=== PATIENT | female | born 1970 | race African-American/Black ===

== ENCOUNTER 2018-01-27 19:15 | Emergency (ER) | payer MEDICARE, MEDICAID ==
[2018-01-27] MEDS ORDERED: METHYLPREDNISOLONE INJ 125 MG/2 ML SDV IV ONE (19:43)
[2018-01-27] MEDS ORDERED: IPRATROPIUM/ALBUTEROL 0.5-2.5 MG/3 ML AMPUL NEB ONE (19:43)
[2018-01-27 20:07] LABS: ABSOLUTE BASOPHILS # (AUTO) 0.1 10^3/uL (0.0-0.2); ABSOLUTE EOSINOPHILS # (AUTO) 0.2 10^3/uL (0.0-0.6); ABSOLUTE LYMPHOCYTES (AUTO) 1.1 10^3/uL (0.5-4.7); ABSOLUTE MONOCYTES (AUTO) 0.5 10^3/uL (0.1-1.4); ABSOLUTE NEUT (AUTO) 8.4 10^3/uL (1.7-8.2); BASOPHILS % (AUTO) 0.7 % (0-2); EOSINOPHILS % (AUTO) 1.7 % (0-6); HEMOGLOBIN 12.2 g/dL (12.0-15.5); LYMPHOCYTES % (AUTO) 10.3 % (13-45); MEAN CORPUSCULAR HEMOGLOBIN 27.6 pg (27.0-33.4); MEAN CORPUSCULAR VOLUME 86 fl (80-97); MONOCYTES % (AUTO) 4.8 % (3-13); PLATELET COUNT 226 10^3/uL (150-450); RED BLOOD COUNT 4.41 10^6/uL (3.72-5.28); SEGMENTED NEUTROPHILS % (AUTO) 82.5 % (42-78); TOTAL CELLS COUNTED % (AUTO) 100 %; WHITE BLOOD COUNT 10.2 10^3/uL (4.0-10.5)
[2018-01-27 20:10] LABS: VENOUS BLOOD BASE EXCESS 3.4 mmol/L; VENOUS BLOOD HCO3 30.5 mmol/L (20-32); VENOUS BLOOD PCO2 57.1 mmHg (35-63); VENOUS BLOOD PH 7.35 (7.30-7.42)
--- NOTE | 2018-01-27 20:21 | RADIOLOGY REPORT (SQ) ---
EXAM DESCRIPTION: CHEST 2 VIEWS COMPLETED DATE/TIME: 01/27/2018 8:14 pm REASON FOR STUDY: sob COMPARISON: None. EXAM PARAMETERS: NUMBER OF VIEWS: two views TECHNIQUE: Digital Frontal and Lateral radiographic views of the chest acquired. RADIATION DOSE: NA LIMITATIONS: none FINDINGS: LUNGS AND PLEURA: No opacities, masses or pneumothorax. No pleural effusion. MEDIASTINUM AND HILAR STRUCTURES: No masses or contour abnormalities. HEART AND VASCULAR STRUCTURES: Heart normal size. No evidence for failure. BONES: No acute findings. HARDWARE: None in the chest. OTHER: No other significant finding. IMPRESSION: NO ACUTE RADIOGRAPHIC FINDING IN THE CHEST. TECHNICAL DOCUMENTATION: JOB ID: [id number] [employer]- All Rights Reserved Reading location - IP/workstation name: [email or web address]
[2018-01-27 20:35] LABS: ALANINE AMINOTRANSFERASE 19 U/L (9-52); ALBUMIN 4.1 g/dL (3.5-5.0); ALKALINE PHOSPHATASE 125 U/L (38-126); ANION GAP 10 (5-19); ASPARTATE AMINO TRANSFERASE 17 U/L (14-36); BILIRUBIN,DIRECT 0.3 mg/dL (0.0-0.4); BILIRUBIN,TOTAL 0.4 mg/dL (0.2-1.3); BLOOD UREA NITROGEN 10 mg/dL (7-20); CALCIUM 9.4 mg/dL (8.4-10.2); CARBON DIOXIDE 34 mmol/L (22-30); CHLORIDE 99 mmol/L (98-107); CREATINE KINASE 56 U/L (30-135); GLUCOSE 112 mg/dL (75-110); POTASSIUM 3.4 mmol/L (3.6-5.0); SODIUM 142.7 mmol/L (137-145); TOTAL PROTEIN 7.4 g/dL (6.3-8.2)
[2018-01-27 20:45] LABS: CREATINE KINASE MB 1.02 ng/mL (<4.55); TROPONIN I < 0.012 ng/mL
[2018-01-27] MEDS ORDERED: AZITHROMYCIN INJ 500 MG VIAL IV ONE (21:15)
[2018-01-27] MEDS ORDERED: BUDESONIDE/FORMOTEROL 160-4.5 MCG 60 PUFF/6 GM MDI IH ONE (22:49)
--- NOTE | 2018-01-27 22:53 | ER Document Report ---
ED Respiratory Problem - General Chief Complaint: Shortness Of Breath Stated Complaint: BREATHING DIFFICULTY Time Seen by Provider: 01/27/18 19:37 Mode of Arrival: Medic Information source: Patient Notes: Patient is a 47-year-old female with COPD who presents to the ER via EMS today for shortness of breath that began this morning. Patient admits to wheezing and coughing over the past couple of days. Patient is not on oxygen at home and states that she does not have inhalers to take at home because "they have not given them to me." She denies any fevers or chills that she knows of. She denies chest pain. TRAVEL OUTSIDE OF THE [place] IN LAST 30 DAYS: No Past Medical History - General Information source: Patient - Social History Smoking Status: Former Smoker Chew tobacco use (# tins/day): No Frequency of alcohol use: None Drug Abuse: None Family History: Reviewed & Not Pertinent Patient has suicidal ideation: No Patient has homicidal ideation: No - Past Medical History Cardiac Medical History: Reports: Hx Hypertension Pulmonary Medical History: Reports: Hx Asthma, Hx COPD Renal/ Medical History: Denies: Hx Peritoneal Dialysis Past Surgical History: Reports: Hx Section, Hx Tubal Ligation Review of Systems - Review of Systems Constitutional: No symptoms reported EENT: No symptoms reported Cardiovascular: No symptoms reported Respiratory: See HPI Gastrointestinal: No symptoms reported Genitourinary: No symptoms reported Female Genitourinary: No symptoms reported Musculoskeletal: No symptoms reported Skin: No symptoms reported Hematologic/Lymphatic: No symptoms reported Neurological/Psychological: No symptoms reported Physical Exam - Vital signs Vitals: Resp Pulse Ox 28 H 98 01/27/18 19:35 01/27/18 19:35 - Notes Notes: PHYSICAL EXAMINATION: GENERAL: Mildly ill-appearing, but in no acute distress. HEAD: Atraumatic, normocephalic. EYES: Pupils equal round and reactive to light, extraocular movements intact, sclera anicteric, conjunctiva are normal. ENT: ear canals without erythema or foreign body, TMs pearly bush with good bony landmarks, nares patent, oropharynx clear without exudates. Moist mucous membranes. Airway patent NECK: Normal range of motion, supple without lymphadenopathy LUNGS: Moderate expiratory wheezes throughout, no rales or rhonchi. HEART: Regular rate and rhythm without murmurs ABDOMEN: Soft, no tenderness. No guarding, no rebound BACK: no vertebral tenderness, normal ROM GI/: no CVA tenderness EXTREMITIES: Normal range of motion, no pitting edema. No cyanosis. NEUROLOGICAL: Cranial nerves grossly intact. Normal sensory/motor exams. PSYCH: Normal mood, normal affect. SKIN: Warm, Dry, normal turgor, no rashes or lesions noted Course - Re-evaluation Re-evalutation: 01/28/18 00:11 Labs are unremarkable today, chest x-ray reveals no acute pathology, venous blood gases all within normal limits, off of oxygen patient oxygen saturation does go down to 91%, but usually stays between 93 and 95% on room air. Hospitalist did come down to evaluate patient, stating that she is stable for discharge and wanted me to send her home with Symbicort. She will go home with that from the emergency department. Patient feeling much better after breathing treatments here. I will send her home on azithromycin and prednisone. - Vital Signs Vital signs: Temp Pulse Resp BP Pulse Ox 26 H 98 01/27/18 21:00 01/27/18 21:00 - Laboratory Result Diagrams: 01/27/18 19:45 01/27/18 19:45 Laboratory results interpreted by me: 01/27/18 01/27/18 19:45 19:45 RDW 16.0 H Seg Neutrophils % 82.5 H Lymphocytes % 10.3 L Absolute Neutrophils 8.4 H Potassium 3.4 L Carbon Dioxide 34 H Glucose 112 H Discharge - Discharge Clinical Impression: COPD exacerbation Condition: Stable Disposition: HOME, SELF-CARE Additional Instructions: Return immediately for any new or worsening symptoms. Follow up with primary care provider, call tomorrow to make followup appointment. Prescriptions: Azithromycin [Zithromax 250 mg Tablet] 250 mg PO ASDIR PRN #6 tablet PRN Reason: Prednisone 60 mg PO DAILY #15 tablet
[2018-01-28] MEDS ORDERED: BUDESONIDE/FORMOTEROL 160-4.5 MCG 60 PUFF/6 GM MDI IH ONE (00:26)
[2018-01-28 00:40] VITALS: BP 178/99
--- NOTE | 2018-01-28 20:16 | EKG REPORT ---
SEVERITY:- NORMAL ECG - SINUS RHYTHM : Confirmed by: Tiffany Bobo 28-Jan-2018 20:16:11
== END 2018-01-28 00:40 | disposition home or self-care (01) ==
LOC: ER 19:15
DX: J44.1 Chronic obstructive pulmonary disease with (acute) exacerbation (principal); R06.02 Shortness of breath; R05 Cough; Z87.891 Personal history of nicotine dependence; I10 Essential (primary) hypertension
CPT/HCPCS: 93005; 94640; 99285; 96375; 96365; 36415; 82553; 82550; 85025; 80053; 84484; 82803; 71046; 93010; J2930; J0456; A9270; J3490; J7620

== ENCOUNTER 2018-04-03 21:23 | Emergency (ER) | payer MEDICAID, MEDICARE ==
[2018-04-03] MEDS ORDERED: ACETAMINOPHEN 325 MG TABLET PO ONE (23:25)
--- NOTE | 2018-04-03 23:26 | ER Document Report ---
ED Medical Screen (RME) - General Chief Complaint: Headache Stated Complaint: HEADACHE Time Seen by Provider: 04/03/18 23:22 TRAVEL OUTSIDE OF THE [place] IN LAST 30 DAYS: No - HPI Notes: 04/03/18 23:23 Patient is a 47-year-old female with a history of anxiety and depression presents to the ED complaining of a frontal headache intermittently 1 week, but worsened with increased stress when she was kicked out of her house today. Patient states that she had nowhere else to go so she called ambulance and was brought here. Patient states the headache does not radiate. Patient states that she has a history of headaches and this is nothing different. She is eating and drinking without any difficulties. She is urinating normally and having normal bowel movements. Denies any drug allergies. Denies any visual or auditory hallucinations. Denies any SI/HI. No other concerns or complaints at this time. Patient is asking to speak with somebody for "places to go." Denies any fever, head injury, neck pain, changes in vision/speech/mentation/ hearing, URI, sore throat, chest pain, palpitations, syncope, cough, shortness of breath, wheeze, dyspnea, abdominal pain, nausea/vomiting/diarrhea, urinary retention, dysuria, hematuria, loss of control of bowel or bladder, numbness/ tingling, muscle paralysis/weakness, or rash. I have treated and performed a rapid initial assessment of this patient. A comprehensive ED assessment and evaluation of the patient, analysis of test results and completion of medical decision making process will be conducted by additional ED providers. PHYSICAL EXAMINATION: GENERAL: Well-appearing, well-nourished and in no acute distress. A&Ox4. Answers questions appropriately. Eyes: PERRLA, EOMI b/l. No nystagmus. Vis ty intact. LUNGS: Breath sounds clear to auscultation bilaterally and equal. No wheezes rales or rhonchi. HEART: Regular rate and rhythm without murmurs, rubs, gallops. Extremities: No cyanosis, clubbing, or edema b/l. MS: no focal weakness. NEUROLOGICAL: Normal speech, normal gait. Cranial nerves grossly intact. NIH 0 , GCS 15. PSYCH: Normal mood, normal affect. Past Medical History - Past Medical History Cardiac Medical History: Reports: Hx Hypertension Pulmonary Medical History: Reports: Hx Asthma, Hx COPD Renal/ Medical History: Denies: Hx Peritoneal Dialysis Past Surgical History: Reports: Hx Section, Hx Tubal Ligation Physical Exam - Vital signs Vitals: Temp Pulse Resp BP Pulse Ox 98.5 F 61 18 143/61 H 98 04/03/18 21:59 04/03/18 21:59 04/03/18 21:59 04/03/18 21:59 04/03/18 21:59 Course - Vital Signs Vital signs: Temp Pulse Resp BP Pulse Ox 98.5 F 61 18 143/61 H 98 04/03/18 21:59 04/03/18 21:59 04/03/18 21:59 04/03/18 21:59 04/03/18 21:59
--- NOTE | 2018-04-04 03:06 | ER Document Report ---
ED General - General Chief Complaint: Headache Stated Complaint: HEADACHE Time Seen by Provider: 04/03/18 23:22 Notes: Patient is a 47-year-old female with a history of anxiety and depression presents to the ED complaining of a frontal headache intermittently 1 week, but worsened with increased stress when she was kicked out of her house today. Patient states that she had nowhere else to go so she called ambulance and was brought here. Patient states the headache does not radiate. Patient states that she has a history of headaches and this is nothing different. Nothing improves or worsens his headache. She is eating and drinking without any difficulties. She is urinating normally and having normal bowel movements. Denies any drug allergies. Denies any visual or auditory hallucinations. Denies any SI/HI. No other concerns or complaints at this time. Patient is asking to speak with somebody for "places to go." Denies any fever, head injury , neck pain, changes in vision/speech/mentation/hearing, URI, sore throat, chest pain, palpitations, syncope, cough, shortness of breath, wheeze, dyspnea, abdominal pain, nausea/vomiting/diarrhea, urinary retention, dysuria, hematuria , loss of control of bowel or bladder, numbness/tingling, muscle paralysis/ weakness, or rash. TRAVEL OUTSIDE OF THE [place] IN LAST 30 DAYS: No Past Medical History - General Information source: Patient - Social History Smoking Status: Never Smoker Frequency of alcohol use: None Drug Abuse: None Lives with: Homeless Family History: Reviewed & Not Pertinent - Past Medical History Cardiac Medical History: Reports: Hx Hypertension Pulmonary Medical History: Reports: Hx Asthma, Hx COPD Renal/ Medical History: Denies: Hx Peritoneal Dialysis Past Surgical History: Reports: Hx Section, Hx Tubal Ligation Review of Systems - Review of Systems Notes: Constitutional: Negative for fever. HENT: Negative for sore throat. Eyes: Negative for visual changes. Cardiovascular: Negative for chest pain. Respiratory: Negative for shortness of breath. Gastrointestinal: Negative for abdominal pain, vomiting or diarrhea. Genitourinary: Negative for dysuria. Musculoskeletal: Negative for back pain. Skin: Negative for rash. Neurological: Positive for headache 10 point ROS negative except as marked above and in HPI. Physical Exam - Vital signs Vitals: Temp Pulse Resp BP Pulse Ox 98.5 F 61 18 143/61 H 98 04/03/18 21:59 04/03/18 21:59 04/03/18 21:59 04/03/18 21:59 04/03/18 21:59 Interpretation: Hypertensive Notes: PHYSICAL EXAMINATION: GENERAL: Well-appearing, well-nourished and in no acute distress. HEAD: Atraumatic, normocephalic. EYES: Pupils equal round and reactive to light, extraocular movements intact, sclera anicteric, conjunctiva are normal. ENT: nares patent, oropharynx clear without exudates. Moist mucous membranes. NECK: Normal range of motion, supple without lymphadenopathy LUNGS: Breath sounds clear to auscultation bilaterally and equal. No wheezes rales or rhonchi. HEART: Regular rate and rhythm without murmurs ABDOMEN: Soft, nontender, normoactive bowel sounds. No guarding, no rebound. No masses appreciated. EXTREMITIES: Normal range of motion, no pitting or edema. No cyanosis. NEUROLOGICAL: No focal neurological deficits. Moves all extremities spontaneously and on command. PSYCH: Normal mood, normal affect. SKIN: Warm, Dry, normal turgor, no rashes or lesions noted. Course - Re-evaluation Re-evalutation: 04/04/18 03:04 Presentation of a headache that appears to be most consistent with tension versus migrainous type headache. Patient has a long-standing history of a headache similar to this. Patient admits that this is not really the reason she came to the ER, her main concern is that she does not currently have any words today and is looking for resources. Headache was not maximal in onset, patient has no focal neurologic deficits, no nuchal rigidity, vital signs within normal limits, no papilledema, and patient is overall well in appearance. Based on clinical history and examination I do not suspect an acute subarachnoid hemorrhage, dural venous sinus thrombosis, acute meningitis, or intercranial mass. Given my low clinical suspicion for any acute life- threatening etiology, I do not feel advanced neuro imaging or laboratory testing is indicated at this time. Patient will be given a dose of Tylenol. Social work consult has been placed in the morning. Patient is otherwise medically cleared for discharge. - Vital Signs Vital signs: Temp Pulse Resp BP Pulse Ox 98.5 F 61 18 143/61 H 98 04/03/18 21:59 04/03/18 21:59 04/03/18 21:59 04/03/18 21:59 04/03/18 21:59 Discharge - Discharge Clinical Impression: Homelessness Headache Qualifiers: Headache type: unspecified Headache chronicity pattern: acute headache Intractability: not intractable Qualified Code(s): R51 - Headache Condition: Good Disposition: HOME, SELF-CARE Additional Instructions: You have been seen in the Emergency Department (ED) for a headache. Please use Tylenol (acetaminophen) or Motrin (ibuprofen) as needed for symptoms, but only as written on the box. As we have discussed, please follow up with your primary care doctor as soon as possible regarding today's ED visit and your headache symptoms. Call your doctor or return to the ED if you have a worsening headache, sudden and severe headache, confusion, slurred speech, facial droop, weakness or numbness in any arm or leg, extreme fatigue, or other symptoms that concern you.
[2018-04-04] MEDS ORDERED: ACETAMINOPHEN 325 MG TABLET ONE (03:38)
[2018-04-04 15:40] VITALS: BP 140/60
== END 2018-04-04 15:40 | disposition home or self-care (01) ==
LOC: ER 21:23
DX: Z59.0 Homelessness (principal); R51 Headache; I10 Essential (primary) hypertension; J44.9 Chronic obstructive pulmonary disease, unspecified
CPT/HCPCS: 99284; A9270